=== PATIENT | female | born 1960 | race Asian ===

== ENCOUNTER 2018-07-12 19:45 | Emergency (ER) | payer OTHER ==
[~2018-07-12] VITALS: Ht 160 cm; Wt 58.5 kg
[2018-07-12 19:50] VITALS: Ht 160 cm; Wt 58.5 kg
[2018-07-12 21:28] LABS: BASOPHIL % 0.3 % (0-2); PLATELET COUNT 208 x10^3mcL (130-400); RED CELL DISTRIBUTION WIDTH 13.2 % (11.5-14.5)
[2018-07-12 21:35] LABS: CALCIUM 9.9 mg/dL (8.5-10.1); CARBON DIOXIDE 27.4 mmol/L (21-32); CHLORIDE SERUM 106 mmol/L (98-107); CREATININE SERUM 0.8 mg/dL (0.6-1.0); GFR1 > 60 mL/min; GLUCOSE SERUM 100 mg/dL (74-106); POTASSIUM SERUM 3.9 mmol/L (3.5-5.1); SODIUM SERUM 142 mmol/L (136-145)
[2018-07-12 21:42] LABS: ALKALINE PHOSPHATASE 69 U/L (46-116); ALT/SGPT 38 U/L (14-59); AST/SGOT 21 U/L (15-37); BILIRUBIN TOTAL 0.67 mg/dL (0.20-1.00); TOTAL PROTEIN, SERUM 8.1 g/dL (6.4-8.2)
[2018-07-12 22:30] VITALS: BP 124/71
== END 2018-07-12 22:30 | disposition home or self-care (01) ==
LOC: ED 19:45
PROVIDERS: Specialist
DX: B34.9 Viral infection, unspecified (principal); B09 Unspecified viral infection characterized by skin and mucous membrane lesions; Z98.890 Other specified postprocedural states
CPT/HCPCS: 36415; 87804